=== PATIENT | female | born 1965 | race African-American/Black ===

== ENCOUNTER 2016-11-04 18:49 | Emergency (ER) | payer BC ==
[~2016-11-04] VITALS: Ht 167.6 cm; Wt 105.0 kg
[2016-11-04] MEDS ORDERED: SODIUM CHLORIDE 0.9% 1,000 ML IV ONE (20:02)
[2016-11-04 21:59] LABS: *AMPHETAMINES SCREEN URINE NEGATIVE (NEGATIVE); *BARBITURATES SCREEN URINE NEGATIVE (NEGATIVE); *BENZODIAZEPINES SCREEN URINE NEGATIVE (NEGATIVE); *COCAINE SCREEN URINE NEGATIVE (NEGATIVE); CANNABINOID URINE SCREEN PRESUMTIVE POSITIVE (NEGATIVE); ECSTASY MDMA SCREEN URINE NEGATIVE (NEGATIVE); METHADONE URINE SCREEN NEGATIVE (NEGATIVE); OPIATES URINE SCREEN NEGATIVE (NEGATIVE); PHENCYCLIDINE URINE SCREEN NEGATIVE (NEGATIVE)
[2016-11-04 23:00] VITALS: BP 146/86
== END 2016-11-04 23:19 | disposition home or self-care (01) ==
LOC: ER 18:49
DX: F12.129 Cannabis abuse with intoxication, unspecified (principal); T40.7X5A Adverse effect of cannabis (derivatives), initial encounter; Y93.89 Activity, other specified; Y99.9 Unspecified external cause status; Y92.89 Other specified places as the place of occurrence of the external cause
CPT/HCPCS: 80305; 96360; 99284; J7030